=== PATIENT | female | born 1965 | race Asian ===

== ENCOUNTER 2020-01-24 09:19 | Outpatient (CLI) | payer BC | END 2020-01-24 09:20 | disposition home or self-care (01) | LOC: COV 09:19 | PROVIDERS: ATTEND Family Medicine | DX: R05 Cough (principal); M79.10 Myalgia, unspecified site; J02.9 Acute pharyngitis, unspecified; R09.81 Nasal congestion; Z20.828 Contact with and (suspected) exposure to other viral communicable diseases ==

== ENCOUNTER 2020-02-29 10:20 | Outpatient (CLI) | payer BC | END 2020-02-29 10:21 | disposition home or self-care (01) | LOC: COV 10:20 | PROVIDERS: ATTEND Family Medicine | DX: R05 Cough (principal); R07.0 Pain in throat; R43.9 Unspecified disturbances of smell and taste; R11.0 Nausea; Z20.828 Contact with and (suspected) exposure to other viral communicable diseases ==

== ENCOUNTER 2022-01-04 13:48 | Outpatient (CLI) | payer BC ==
--- NOTE | 2022-01-04 16:27 | DEXA Report ---
PROCEDURE: Dexa Spine and/or Hip INDICATIONS: POSTMENOPAUSAL TECHNIQUE: Dual energy x-ray absorptiometry (DXA) was performed on a [employer] System. Regions measur ed are the AP Spine, femoral neck, and if needed forearm. COMPARISON: None. FINDINGS: Lumbar Spine: Bone Mineral Density 1.069 g/cm/cm,T score -0.9, normal Left Hip: Bone Mineral Density 0.804 g/cm/cm,T score -1.6, mild osteopenia Left Femoral Neck: Bone Mineral Density 0.755 g/cm/cm, T score -2.0, moderate to severe osteopenia (T score greater or equal to -1.0: NORMAL) (T score from -1.1 to -2.4: OSTEOPENIA) (T score less than or equal to -2.5 to: OSTEOPOROSIS) Impression: Osteopenia most severe in the left femoral neck. Patients with diagnosis of osteoporosis or osteopenia should have regular bone mineral density assess ment. For those eligible for Medicare, routine testing is allowed once every 2 years. Testing frequ ency can be increased for patients who have rapidly progressing disease or for those who are receivin g medical therapy to restore bone mass. Reviewed by: Rae Parr MD on 01/04/2022 4:26 PM PDT Approved by: Rae Parr MD on 01/04/2022 4:26 PM PDT Station ID: [id number]
== END 2022-01-04 13:49 | disposition home or self-care (01) ==
LOC: DI 13:48
PROVIDERS: ATTEND Internal Medicine
DX: Z78.0 Asymptomatic menopausal state (principal); M85.89 Other specified disorders of bone density and structure, multiple sites